=== PATIENT | female | born 1985 | race Caucasian/White ===

== ENCOUNTER 2018-03-08 06:19 | Emergency (ER) | payer OTHER ==
[2018-03-08] MEDS ORDERED: Tetracaine 0.5% Ophth (OR ONLY) OD ONE (07:10)
[2018-03-08] MEDS ORDERED: Fluorescein 1 mg Ophthalmic Strip OU ONE (07:11)
[2018-03-08] MEDS ORDERED: Tetracaine 0.5% Ophth (OR ONLY) ONE (07:29)
[2018-03-08] MEDS ORDERED: Naproxen 550 mg Tab PO STA (07:58)
--- NOTE | 2018-03-08 08:01 | C.PDOC ---
History Of Present Illness 32-year-old female presents to the emergency department with complaints of right eye pain. Patient states she accidentally poked her right eye with a plastic blind hanger last night. She denies any other injuries, and denies dizziness, headache, discharge, bleeding. Patient is unsure of tetanus vaccination status. Time Seen by Provider: 03/08/18 07:09 Chief Complaint (Nursing): Eye Problem History Per: Patient History/Exam Limitations: no limitations Current Symptoms Are (Timing): Still Present Severity: Moderate Quality: "Pain" Associated Symptoms: Pain, Decreased Vision Past Medical History Reviewed: Historical Data, Nursing Documentation, Vital Signs Vital Signs: Last Vital Signs Temp 98.2 F 03/08/18 08:20 Pulse 66 03/08/18 08:20 Resp 18 03/08/18 08:20 BP 107/68 03/08/18 08:20 Pulse Ox 100 03/08/18 13:20 - Medical History PMH: No Chronic Diseases Family History: States: No Known Family Hx - Social History Hx Alcohol Use: No Hx Substance Use: No - Immunization History Hx Tetanus Toxoid Vaccination: No Hx Influenza Vaccination: No Hx Pneumococcal Vaccination: No Review Of Systems Constitutional: Negative for: Fever Eyes: Positive for: Pain (+photophobia, injury), Redness ENT: Negative for: Ear Pain, Nose Congestion, Throat Pain Respiratory: Negative for: Cough, Shortness of Breath Gastrointestinal: Negative for: Nausea Skin: Negative for: Rash Neurological: Negative for: Headache, Dizziness Physical Exam - Physical Exam Appears: Well, Non-toxic, In Acute Distress (in mild paoin ) Skin: Normal Color, Warm, Dry, No Rash Head: Atraumatic, Normacephalic Eye(s): bilateral: PERRL, EOMI (no pain with EOM movement), right: Other ( Injected sclera and clear discharge, approx 0.5cm corneal ulcer at 7 o'clock, globe intact), left: Normal Inspection Oral Mucosa: Moist Neck: Normal, Normal ROM Cardiovascular: Rhythm Regular Respiratory: Normal Breath Sounds, No Rales, No Rhonchi, No Wheezing Neurological/Psych: Oriented x3, Normal Speech, Normal Cognition ED Course And Treatment O2 Sat by Pulse Oximetry: 100 (ra) Pulse Ox Interpretation: Normal Progress Note: Patient given PO Naprosyn and Tetanus Vaccination IM. Tetracaine instilled into eye, patient tolerated well. Fluorescin stain unavailable in ED and pharmacy, currently backordered. Reevaluation Time: 08:10 Reassessment Condition: Improved (Patient resting comfortably, in no distress. Rx for Naprosyn and Ofloxacin eye drops. Patient instructed to follow up with ophthamology in 1-2 days, and understands he should return to er ED if symptoms worsen.) Disposition Counseled Patient/Family Regarding: Diagnosis, Need For Followup, Rx Given - Disposition Referrals: Dario Moon [Staff Provider] - Disposition: HOME/ ROUTINE Disposition Time: 08:10 Condition: STABLE Additional Instructions: FOLLOW UP WITH OPTHAMOLOGY IN 1-2 DAYS USE MEDICATIONS DIRECTED RETURN TO ER IF SYMPTOMS WORSEN Prescriptions: Naproxen 375 mg PO BID PRN #20 tablet PRN Reason: pain Ofloxacin Ophth 0.3% [Ocuflox Ophth 0.3%] 1 drop GT Q4 #1 bottle Instructions: Corneal Ulcer (DC) Forms: [employer] (Albanian), Work Excuse Print Language: PARAGUAYAN - Clinical Impression Clinical Impression: Corneal ulcer, right - Scribe Statement The provider has reviewed the documentation as recorded by the Scribe (Hira Simon) All medical record entries made by the Scribe were at my direction and personally dictated by me. I have reviewed the chart and agree that the record accurately reflects my personal performance of the history, physical exam, medical decision making, and the department course for this patient. I have also personally directed, reviewed, and agree with the discharge instructions and disposition.
[2018-03-08] MEDS ORDERED: Naproxen 550 mg Tab PO ONE (08:23)
[2018-03-08] MEDS ORDERED: Tetanus/Diphtheria Toxoids 0.5 ml Syringe IM ONE ×2 (08:25→08:41)
[2018-03-08 08:44] VITALS: BP 107/68; PULSE 66; RESP 18; TEMP 98.2
[2018-03-08 09:14] VITALS: O2SAT 100
== END 2018-03-08 08:44 | disposition home or self-care (01) ==
LOC: C.ER 06:19
DX: H16.001 Unspecified corneal ulcer, right eye (principal)